=== PATIENT | male | born 1970 | race Hispanic/Latino ===

== ENCOUNTER 2016-10-26 17:28 | Emergency (ER) | payer SELFPAY ==
--- NOTE | 2016-10-26 19:25 | Emergency Department Report ---
- General Chief complaint: Laceration/Recheck/Suture Stated complaint: LEFT ARM LACERATION Time Seen by Provider: 10/26/16 19:08 Source: patient, family Mode of arrival: Ambulatory Limitations: No Limitations - History of Present Illness Initial comments: Patient here reports that he has laceration to his left wrist area. He said he was using a handsaw and the handsaw jumped off the fluid and cut him on his left rinse. He reports that his family member place pressure on the site with a pressure bandage. He reports pain is 8 out of 10 and throbbing. He said it was bleeding quite a bit and was able to stop the bleeding with pressure bandage. He denies any numbness or tingling to his extremities. No radiation of pain. Last tetanus vaccine was 3 years ago. Denies any weakness to his left hand. No [id number] medication taken per patient prior to coming to the emergency room. 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 Previous history of right hand surgery. MD complaint: laceration -: This evening Tetanus Up to Date: yes Location: LUE (left forearm distally) Severity: severe Severity scale (0 -10): 8 Quality: other (Throbing) Consistency: intermittent Improves with: rest Worsens with: palpation, movement Context: other (accident) Associated symptoms: athralgias Treatments Prior to Arrival: bandages - Related Data Previous Rx's Medication Instructions Recorded Last Taken Type Cephalexin [Keflex] 500 mg PO Q8HR #21 cap 10/26/16 Unknown Rx Ibuprofen [Motrin] 600 mg PO Q8H PRN #15 tablet 10/26/16 Unknown Rx Allergies Allergy/AdvReac Type Severity Reaction Status Date / Time No Known Allergies Allergy Verified 10/26/16 19:35 Abscess Boil HPI - HPI Chief Complaint: Laceration/Recheck/Suture Stated Complaint: LEFT ARM LACERATION Time Seen by Provider: 10/26/16 19:08 Home Medications: Previous Rx's Medication Instructions Recorded Last Taken Type Cephalexin [Keflex] 500 mg PO Q8HR #21 cap 10/26/16 Unknown Rx Ibuprofen [Motrin] 600 mg PO Q8H PRN #15 tablet 10/26/16 Unknown Rx Allergies/Adverse Reactions: Allergies Allergy/AdvReac Type Severity Reaction Status Date / Time No Known Allergies Allergy Verified 10/26/16 19:35 ED Review of Systems ROS: Stated complaint: LEFT ARM LACERATION Other details as noted in HPI Comment: All other systems reviewed and negative Constitutional: no symptoms reported Respiratory: no symptoms reported Cardiovascular: denies: chest pain, palpitations, edema, syncope Gastrointestinal: denies: nausea, vomiting Musculoskeletal: arthralgia. denies: back pain, joint swelling, myalgia Skin: other (Laceration) Neurological: denies: headache, weakness, numbness, paresthesias, confusion, abnormal gait, vertigo ED Past Medical Hx - Past Medical History Previous Medical History?: Yes Hx Hypertension: Yes (non-compliant) Hx Heart Attack/AMI: No Hx Congestive Heart Failure: No Hx Diabetes: No Hx Deep Vein Thrombosis: Yes (Hx blood clots in lungs 2009) Hx Pulmonary Embolism: Yes Hx GERD: No Hx Liver Disease: No Hx Renal Disease: No Hx Sickle Cell Disease: No Hx Arthritis: Yes (Eliu Hands) Hx Headaches / Migraines: No Hx Seizures: No Hx Kidney Stones: No Hx Asthma: No Hx COPD: No Hx Tuberculosis: No Hx Dementia: No Hx HIV: No - Surgical History Past Surgical History?: Yes Hx Coronary Stent: No Hx Open Heart Surgery: No Hx Pacemaker: No Hx Internal Defibrillator: No Hx Cholecystectomy: No Hx Appendectomy: No Hx Breast Surgery: No Additional Surgical History: right hand surgery/sutures - Family History Family history: hypertension - Social History Smoking Status: Current Every Day Smoker Substance Use Type: Alcohol, Methamphetamines Other Social History: Lives with family - Medications Home Medications: Home Medications Medication Instructions Recorded Confirmed Last Taken Type Cephalexin [Keflex] 500 mg PO Q8HR #21 cap 10/26/16 Unknown Rx Ibuprofen [Motrin] 600 mg PO Q8H PRN #15 tablet 10/26/16 Unknown Rx ED Physical Exam - General Limitations: No Limitations General appearance: alert, in no apparent distress - Head Head exam: Present: atraumatic, normocephalic, normal inspection - Eye Eye exam: Present: normal appearance, PERRL, EOMI Pupils: Present: normal accommodation - Neck Neck exam: Present: normal inspection, full ROM. Absent: tenderness, lymphadenopathy - Respiratory Respiratory exam: Present: normal lung sounds bilaterally. Absent: chest wall tenderness - Cardiovascular Cardiovascular Exam: Present: normal rhythm, tachycardia, normal heart sounds. Absent: systolic murmur, diastolic murmur - GI/Abdominal GI/Abdominal exam: Present: soft, normal bowel sounds. Absent: distended, tenderness, guarding, rebound, rigid - Extremities Exam Extremities exam: Present: full ROM, tenderness (tender to palpate around the laceration site to the left dorsal aspect of forearm), normal capillary refill, other (patient with +2 pulses to extremities. No neurovascular compromise to extremities. Capillary refill is less than 3 seconds. No clubbing cyanosis or edema.). Absent: normal inspection (laceration to left dorsal aspect of forearm , distally), pedal edema, joint swelling, calf tenderness - Back Exam Back exam: Present: normal inspection, full ROM. Absent: tenderness - Neurological Exam Neurological exam: Present: alert, oriented X3, normal gait, reflexes normal. Absent: motor sensory deficit - Psychiatric Psychiatric exam: Present: normal affect, normal mood - Skin Skin exam: Present: warm, dry, normal color, other (laceration to left forearm) - Expanded Skin Exam Expanded Type of lesion: Present: laceration Distribution of rash: LUE (left distal forearm, dorsally) Description of rash: Present: size (2 cm superficial laceration to left distal aspect of forearm, dorsally), tenderness. Absent: erythematous, swelling, discharge, fluctuant, indurated ED Course Vital Signs 10/26/16 10/26/16 10/26/16 17:44 17:46 19:32 Temperature 98.1 F 98 F Pulse Rate 104 H 104 H 95 H Respiratory 18 18 Rate Blood Pressure 115/69 Blood Pressure 115/76 [Right] O2 Sat by Pulse 96 100 99 Oximetry 10/26/16 10/26/16 21:23 21:26 Temperature Pulse Rate Respiratory 18 Rate Blood Pressure 123/85 Blood Pressure [Right] O2 Sat by Pulse Oximetry - Reevaluation(s) Reevaluation #1: 10/26/16 22:09 Patient given Ancef 1 g IM in the emergency room without any adverse reaction. See procedure note for details on laceration repair. His tetanus vaccine is up- to-date. He was also given 5/325 2 tablets in the emergency room which relieved his pain. - Laceration /Wound Repair Left Distal Dorsal Wrist Wound Location: upper extremity (left distal forearm, dorsally) Wound Length (cm): 2 Wound's Depth, Shape: superficial, irregular Wound Explored: clean Irrigated w/ Saline (ccs): 500 Betadine Prep?: Yes Anesthesia: 0.5% Sensorcaine (0.5% Marcaine) Volume Anesthetic (ccs): 1 Wound Debrided: moderate Wound Repaired With: sutures Suture Size/Type: 3:0 (Ethilon) Number of Sutures: 14 Layer Closure?: No Sterile Dressing Applied?: Yes ED Medical Decision Making - Radiology Data Radiology results: report reviewed X-ray of left wrist to include distal left forearm reveals no acute fracture or dislocation - Medical Decision Making ED course: Patient here after cutting his left forearm with a hand saw. He reports that this was an accident. Patient found to have 2 cm laceration to the left distal aspect of forearm. Laceration repaired under sterile procedure. See procedure note for details. Patient given Ancef 1 g IM in emergency room without any adverse reaction. He was also given [place] 5/325 2 tablets for pain. Tetanus vaccine up-to-date. Patient with laceration to left forearm and arthralgia left forearm. Diagnosis and treatment plan explained to patient and he voiced understanding. I discussed the patient that he needs to return to emergency room in 7-10 days for suture removal and he needs to keep affected area clean and dry. Patient discharged home with prescription for Motrin and Keflex. Critical care attestation.: If time is entered above; I have spent that time in minutes in the direct care of this critically ill patient, excluding procedure time. ED Disposition Clinical Impression: Arthralgia of left forearm Laceration of left forearm without complication Qualifiers: Encounter type: initial encounter Qualified Code(s): S51.812A - Laceration without foreign body of left forearm, initial encounter Injury of left forearm Qualifiers: Encounter type: initial encounter Qualified Code(s): S59.912A - Unspecified injury of left forearm, initial encounter Disposition: TO HOME OR SELFCARE Is pt being admited?: No Does the pt Need Aspirin: No Condition: Stable Instructions: Suture Care (ED), Laceration (ED), Arthralgia (ED), Acute Wound Care (ED) Additional Instructions: Take antibiotic as prescribed Follow-up with your primary care physician in 2 days Keep affected area clean and dry. Followed discharge instruction on acute wound care . Please return to emergency room if you develop increasing redness, streaking, fever, difficulty moving in and the left forearm and increase in pain. Please return to the emergency room in 7-10 days to have stitches removed Prescriptions: Cephalexin [Keflex] 500 mg PO Q8HR #21 cap Ibuprofen [Motrin] 600 mg PO Q8H PRN #15 tablet PRN Reason: Pain Referrals: Return To, ER [Other] - 7-10 days (For suture removal) PRIMARY CARE,MD [Primary Care Provider] - 2-3 Days Forms: Accompanied Note, Work/School Release Form(ED)
[2016-10-26] MEDS ORDERED: NACL 0.9% IR ONE (19:26)
[2016-10-26] MEDS ORDERED: ANCEF IM ONE (19:26)
[2016-10-26] MEDS ORDERED: MARCAINE 0.5% INFILTRATI ONE (19:26)
[2016-10-26] MEDS ORDERED: NACL P/F VIAL (10 ML) 10 ML ONE (19:52)
[2016-10-26] MEDS ORDERED: NORCO 5/325 PO ONE (20:11)
--- NOTE | 2016-10-26 20:48 | XRay Report ---
FINAL REPORT PROCEDURE: XR WRIST 3+V LT TECHNIQUE: Left wrist radiographs, including AP, lateral, and oblique views. CPT 56707 HISTORY: left wrist injury with poss foreign body COMPARISON: No prior studies are available for comparison. FINDINGS: Fracture (s) and/or Dislocation(s): None . Alignment: Normal . Joint space(s): Normal . Soft tissues: Normal . Bone mineralization: Normal . Foreign bodies: None . IMPRESSION: Normal Examination.
[2016-10-26 22:30] VITALS: BP 120/85
== END 2016-10-26 22:31 | disposition home or self-care (01) ==
LOC: ED 17:28
DX: W45.8XXA Other foreign body or object entering through skin, initial encounter (principal); Y93.9 Activity, unspecified; Y92.89 Other specified places as the place of occurrence of the external cause; Y99.8 Other external cause status; I10 Essential (primary) hypertension; M19.90 Unspecified osteoarthritis, unspecified site; F17.200 Nicotine dependence, unspecified, uncomplicated; F19.10 Other psychoactive substance abuse, uncomplicated
CPT/HCPCS: 12001; 73110; 96372; 99283; J0690

== ENCOUNTER 2016-11-28 09:28 | Emergency (ER) | payer SELFPAY ==
[2016-11-28 10:51] VITALS: BP 119/93
[2016-11-28 11:54] LABS: Basophils % (Auto) 0.5 % (0.0-1.8); Eosinophils % (Auto) 1.7 % (0.0-4.3); Hematocrit 41.8 % (35.5-45.6); Hemoglobin 13.6 gm/dl (11.8-15.2); Mean Corpuscular HGB Conc 33 % (32-34); Mean Corpuscular Hemoglobin 29 pg (28-32); Mean Corpuscular Volume 88 fl (84-94); Platelet Count 353 K/mm3 (140-440); Red Blood Count 4.77 M/mm3 (3.65-5.03); White Blood Count 15.5 K/mm3 (4.5-11.0)
[2016-11-28 12:04] LABS: Anion Gap 17 mmol/L; BUN/Creatinine Ratio 20; Blood Urea Nitrogen 14 mg/dL (9-20); Carbon Dioxide 25 mmol/L (22-30); Chloride 101.9 mmol/L (98-107); Glucose 91 mg/dL (75-100); Potassium 3.9 mmol/L (3.6-5.0); Sodium 140 mmol/L (137-145)
--- NOTE | 2016-11-28 12:18 | XRay Report ---
CHEST 2 VIEWS INDICATION: Shortness of breath. COMPARISON: None similar. FINDINGS: PA and lateral chest radiographs demonstrate normal cardiomediastinal silhouette. Clear lungs. Intact bones. CONCLUSION: No acute disease in the chest. Thank you for the opportunity to participate in this patient's care.
== END 2016-11-28 16:51 | disposition left against medical advice (07) ==
LOC: ED 09:28
DX: R06.02 Shortness of breath (principal); R05 Cough; Z53.21 Procedure and treatment not carried out due to patient leaving prior to being seen by health care provider
CPT/HCPCS: 36415; 71020; 80048; 84484; 85025; 93005; 93010

== ENCOUNTER 2017-11-03 17:37 | Emergency (ER) | payer SELFPAY ==
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
[2017-11-03] MEDS ORDERED: PERCOCET 5/325 PO ONE (19:32)
[2017-11-03] MEDS ORDERED: PERCOCET 5/325 ONE (19:33)
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
[2017-11-03 20:04] VITALS: BP 146/72
== END 2017-11-03 20:02 | disposition home or self-care (01) ==
LOC: ED 17:37
DX: N45.1 Epididymitis (principal); I10 Essential (primary) hypertension; F17.200 Nicotine dependence, unspecified, uncomplicated; F12.10 Cannabis abuse, uncomplicated; M13.842 Other specified arthritis, left hand; M13.841 Other specified arthritis, right hand; Z79.899 Other long term (current) drug therapy; Z86.718 Personal history of other venous thrombosis and embolism; Z86.711 Personal history of pulmonary embolism
CPT/HCPCS: 93975; 99283